=== PATIENT | female | born 1955 | race Caucasian/White ===

== ENCOUNTER → 2022-09-11 | Outpatient (CLI) | payer MEDICARE, SELFPAY ==
--- NOTE | 2022-09-11 13:11 | ECHOD_ITS ---
Reason For Study: EMBOLISM AND THROMBOSIS Procedure This was a 2D Doppler, Color Flow transthoracic echocardiogram. Myocardial strain analysis was performed in this exam to aid in the assessment of cardiac function. Exam performed in department. Left Ventricle Normal size and thickness. The left ventricular ejection fraction is 60 %. Normal diastology for age. Right Ventricle Normal right ventricle. Atria The left and right atria are normal. Mitral Valve Mild mitral annular calcification. Mild diffuse mitral valve thickening. Trivial mitral valve insufficiency. Tricuspid Valve Trivial tricuspid valve insufficiency. Unable to estimate RV systolic pressure due to insufficient tricuspid regurgitant envelope. Aortic Valve Normal aortic valve. Pulmonic Valve The pulmonic valve is not well visualized. Great Vessels Normal sized aortic root. Pericardium/Pleural No pericardial effusion. MMode/2D Measurements & Calculations LVIDd: 4.7 cm IVSd: 0.89 cm Ao root diam: 3.2 cm LVIDs: 3.0 cm LVPWd: 1.2 cm FS: 36.4 % LAV(MOD-bp): 61.9 ml LVAd ap4: 25.6 cm2 SV(MOD-sp4): 43.1 ml LAV(MOD-bp) Indexed: 31.4 ml/m2 LVLd ap4: 7.2 cm LAV(MOD-sp2): 51.1 ml EDV(MOD-sp4): 75.7 ml LAV(MOD-sp4): 71.7 ml EDV(sp4-el): 77.5 ml LVAs ap4: 15.0 cm2 LVLs ap4: 6.0 cm ESV(MOD-sp4): 32.6 ml ESV(sp4-el): 31.9 ml EF(MOD-sp4): 56.9 % EF(sp4-el): 58.8 % SV(sp4-el): 45.6 ml LA A4 area: 22.3 cm2 LA dimension(2D): 3.9 cm RA A4 area: 9.0 cm2 Time Measurements MV dec time: 0.17 sec Doppler Measurements & Calculations MV E max jacobo: 97.3 cm/sec Lat Peak E' Jacobo: 14.3 cm/sec Med Peak E' Jacobo: 10.5 cm/sec MV A max jacobo: 92.7 cm/sec E/E' lat: 6.8 E/E' med: 9.3 MV E/A: 1.1 MV V2 max: 105.1 cm/sec Ao V2 max: 172.4 cm/sec MV max P.4 mmHg MV dec slope: 584.2 cm/sec2 Ao max P.9 mmHg MV V2 mean: 74.5 cm/sec Ao V2 mean: 117.5 cm/sec MV mean P.4 mmHg Ao mean P.3 mmHg MV V2 VTI: 32.2 cm Ao V2 VTI: 35.3 cm AV (velocity ratio): 0.81 LV V1 max: 128.7 cm/sec PA V2 max: 119.7 cm/sec LV V1 max P.6 mmHg PA V2 mean: 78.2 cm/sec LV V1 mean P.9 mmHg LV V1 mean: 93.1 cm/sec LV V1 VTI: 28.4 cm ECHO/Echo Complete Interpretation Summary The left ventricular ejection fraction is 60 %. Mild mitral annular calcification. Mild diffuse mitral valve thickening. Ordering Physician: XENA MCCLAIN Referring Physician: XENA MCCLAIN Performed By: Carisa Edouard RCS
== END | disposition home or self-care (01) ==
PROVIDERS: PCP Family Medicine
DX: I74.4 Embolism and thrombosis of arteries of extremities, unspecified (principal)
CPT/HCPCS: 93306

== ENCOUNTER → 2022-09-20 | Outpatient (CLI) | payer MEDICARE, SELFPAY ==
[2022-09-20 13:10] LABS: ALB/GLOB Ratio 0.7 RATIO (0.9-2.4); AST(SGOT) 322 U/L (15-37); Alanine Aminotransfer ALT/SGPT 825 U/L (13-56); Albumin, Serum 2.8 g/dL (3.2-5.0); Alkaline Phosphatase 537 U/L (45-117); Anion Gap 6 (5-15); BUN 16 mg/dL (7-18); BUN/Creat Ratio 18.8 RATIO (10-20); Bilirubin, Direct 2.53 mg/dL (0.00-0.30); Calcium,Total 8.8 mg/dL (8.5-10.1); Chloride 102 mmol/L (98-107); Creatinine, Serum 0.85 mg/dL (0.55-1.02); EST Glomerular Filtration Rate 71 mL/min (>60); Est Glom Filt Rate - Afr Amer 86 mL/min (>60); Globulin 3.9 g/dL (2.2-4.2); Glucose 256 mg/dL (74-106); Potassium 4.3 mmol/L (3.5-5.1); Protein, Total 6.7 g/dL (6.4-8.2); Sodium Level 134 mmol/L (136-145)
== END | disposition home or self-care (01) ==
LOC: LAB 11:19
PROVIDERS: PCP Family Medicine; Referring Provider Internal Medicine Hematology & Oncology; Visit Provider Internal Medicine Hematology & Oncology
DX: Z51.11 Encounter for antineoplastic chemotherapy (principal); C50.412 Malignant neoplasm of upper-outer quadrant of left female breast; Z51.12 Encounter for antineoplastic immunotherapy
CPT/HCPCS: 36415; 80053; 82248

== ENCOUNTER → 2022-09-28 | Outpatient (CLI) | payer MEDICARE, SELFPAY ==
[2022-09-28 13:31] LABS: ALB/GLOB Ratio 0.8 RATIO (0.9-2.4); AST(SGOT) 134 U/L (15-37); Alanine Aminotransfer ALT/SGPT 365 U/L (13-56); Alkaline Phosphatase 907 U/L (45-117); Anion Gap 4 (5-15); BUN 31 mg/dL (7-18); BUN/Creat Ratio 35.1 RATIO (10-20); Bilirubin, Direct 2.34 mg/dL (0.00-0.30); Calcium,Total 8.9 mg/dL (8.5-10.1); Chloride 99 mmol/L (98-107); Creatinine, Serum 0.88 mg/dL (0.55-1.02); EST Glomerular Filtration Rate 68 mL/min (>60); Est Glom Filt Rate - Afr Amer 82 mL/min (>60); Globulin 3.8 g/dL (2.2-4.2); Glucose 371 mg/dL (74-106); Protein, Total 6.8 g/dL (6.4-8.2); Sodium Level 133 mmol/L (136-145)
== END | disposition home or self-care (01) ==
LOC: LAB 12:01
PROVIDERS: PCP Family Medicine
DX: Z51.11 Encounter for antineoplastic chemotherapy (principal); Z51.12 Encounter for antineoplastic immunotherapy
CPT/HCPCS: 36415; 80053; 82248

== ENCOUNTER → 2022-11-05 | Outpatient (CLI) | payer MEDICARE, SELFPAY ==
[2022-11-05 13:23] LABS: Hematocrit 32.1 % (37-47); Hemoglobin 10.2 g/dL (12.0-15.0); Mean Corp Hgb Conc 31.8 g/dL (32-36); Mean Corpuscular Hgb 33.1 pg (27.0-32.0); Mean Corpuscular Volume 104.2 fL (81-99); Mean Platelet Vol. 10.1 fl (6.2-12.0); Platelet Count 158 K/mm3 (150-450); RBC Distribution Width CV 14.7 % (11.6-14.6); RBC Distribution Width SD 55.9 fl (35.1-43.9); Red Blood Count 3.08 M/mm3 (4.2-5.4); White Blood Count 2.8 K/mm3 (4.4-11.0)
[2022-11-05 14:13] LABS: ALB/GLOB Ratio 0.8 RATIO (0.9-2.4); AST(SGOT) 751 U/L (15-37); Alanine Aminotransfer ALT/SGPT 879 U/L (13-56); Albumin, Serum 2.8 g/dL (3.2-5.0); Alkaline Phosphatase 1055 U/L (45-117); Anion Gap 6 (5-15); BUN 11 mg/dL (7-18); BUN/Creat Ratio 14.3 RATIO (10-20); Calcium,Total 8.6 mg/dL (8.5-10.1); Chloride 99 mmol/L (98-107); Creatinine, Serum 0.77 mg/dL (0.55-1.02); EST Glomerular Filtration Rate 80 mL/min (>60); Est Glom Filt Rate - Afr Amer 97 mL/min (>60); Globulin 3.6 g/dL (2.2-4.2); Glucose 300 mg/dL (74-106); Potassium 4.4 mmol/L (3.5-5.1); Protein, Total 6.4 g/dL (6.4-8.2); Sodium Level 135 mmol/L (136-145)
== END | disposition home or self-care (01) ==
PROVIDERS: PCP Family Medicine; Referring Provider Internal Medicine Hematology & Oncology; Visit Provider Internal Medicine Hematology & Oncology
DX: Z51.11 Encounter for antineoplastic chemotherapy (principal); C50.412 Malignant neoplasm of upper-outer quadrant of left female breast; K75.4 Autoimmune hepatitis; Z51.12 Encounter for antineoplastic immunotherapy; R68.2 Dry mouth, unspecified
CPT/HCPCS: 36415; 80053; 85027

== ENCOUNTER → 2022-12-06 | Outpatient (CLI) | payer MEDICARE, SELFPAY ==
[2022-12-06 13:07] LABS: Hematocrit 36.7 % (37-47); Hemoglobin 11.8 g/dL (12.0-15.0); Mean Corp Hgb Conc 32.2 g/dL (32-36); Mean Corpuscular Hgb 33.9 pg (27.0-32.0); Mean Corpuscular Volume 105.5 fL (81-99); Mean Platelet Vol. 11.7 fl (6.2-12.0); Platelet Count 136 K/mm3 (150-450); RBC Distribution Width CV 15.8 % (11.6-14.6); RBC Distribution Width SD 60.7 fl (35.1-43.9); Red Blood Count 3.48 M/mm3 (4.2-5.4); White Blood Count 8.2 K/mm3 (4.4-11.0)
[2022-12-06 13:34] LABS: AST(SGOT) 29 U/L (15-37); Alanine Aminotransfer ALT/SGPT 99 U/L (13-56); Albumin, Serum 2.9 g/dL (3.2-5.0); Alkaline Phosphatase 289 U/L (45-117); Anion Gap 8 (5-15); BUN 19 mg/dL (7-18); Calcium,Total 8.2 mg/dL (8.5-10.1); Chloride 106 mmol/L (98-107); Creatinine, Serum 0.79 mg/dL (0.55-1.02); EST Glomerular Filtration Rate 77 mL/min (>60); Est Glom Filt Rate - Afr Amer 93 mL/min (>60); Globulin 2.8 g/dL (2.2-4.2); Glucose 361 mg/dL (74-106); Potassium 3.5 mmol/L (3.5-5.1); Protein, Total 5.7 g/dL (6.4-8.2); Sodium Level 140 mmol/L (136-145)
[2022-12-07 10:47] LABS: Absolute Lymphocyte Count 1.41 X10^3/uL (0.83-4.51); Absolute Neutrophil Count 6.2 X10^3/uL (2.0-7.7); Basophil# 0.05 X10^3/uL; Basophil% 0.6 % (0-1); Lymphocyte # 1.41 X10^3/ul (0.83-4.51); Lymphocyte % 16.5 % (19-41); Monocyte# 0.57 X10^3/uL; Monocyte% 6.7 % (0-10); NRBC Flagged by Analyzer 0 % (0-5); Neutrophil # 6.19 X10^3/uL (2.7-7.7); Neutrophil % 72.5 % (47-70)
== END | disposition home or self-care (01) ==
LOC: LAB 11:09
PROVIDERS: PCP Family Medicine; Referring Provider Internal Medicine Hematology & Oncology; Visit Provider Internal Medicine Hematology & Oncology
DX: C50.412 Malignant neoplasm of upper-outer quadrant of left female breast (principal); K75.4 Autoimmune hepatitis; E86.0 Dehydration; R19.7 Diarrhea, unspecified
CPT/HCPCS: 36415; 80053; 85025; 85027

== ENCOUNTER 2022-12-18 17:14 | Emergency (ER) | payer MEDICARE, SELFPAY ==
[2022-12-18 17:15] VITALS: BP 158/68; PULSE 89; RESP 16; TEMP 36.4; O2SAT 99; BMI 36.4
--- NOTE | 2022-12-18 17:53 | CT_ITS ---
STUDY: CT CERVICAL SPINE WITHOUT CONTRAST REASON FOR EXAM: Female, 67 years old. Trauma RADIATION DOSAGE (If Supplied By Facility): CTDIvol = ( 20.96 ) mGy, DLP = ( 422.57 ) mGycm TECHNIQUE: High resolution transaxial imaging was performed without contrast material. Sagittal and coronal images were reconstructed. Individualized dose optimization techniques were used for this CT. COMPARISON: None FINDINGS: Normal craniovertebral junction. There are degenerative changes of the anterior atlantoaxial articulation. Normal odontoid process. There is straightening of the normal cervical lordosis. Normal vertebral bodies and posterior osseous elements. C2-3: There is facet or nephropathy. There is minimal left neural foraminal narrowing no significant central stenosis. C3-4: There is minimal disc space narrowing. There is facet arthropathy with mild left neural foramina narrowing is significant central stenosis. C4-5: There is disc space narrowing left lateral disc osteophyte moderate left neural foramina narrowing minimal central stenosis. C5-6: There is disc space narrowing spondylosis no significant neural foramina narrowing or central stenosis. C6-7: There is visualized minimal disc space narrowing. There are spondylosis without neural foramina narrowing or central stenosis. C7-T1: Normal endplates. Normal disc height and morphology. Normal central canal and intervertebral neuroforamina. There is partially visualized right-sided central line. CT/Spine Cervical without Contras IMPRESSION: Degenerative change of the cervical spine. No visualized acute fracture. Electronically Signed: Faiza Ashley MD at 18:48 EDT ,
--- NOTE | 2022-12-18 17:53 | CT_ITS ---
STUDY: CT BRAIN WITHOUT CONTRAST REASON FOR EXAM: Female, 67 years old. Trauma/fall RADIATION DOSAGE (If Supplied By Facility): CTDIvol = ( 44.99 ) mGy, DLP = ( 779.24 ) mGycm TECHNIQUE: Transaxial CT imaging of the brain was performed without administration of intravenous contrast material. Individualized dose optimization techniques were used for this CT. COMPARISON: No relevant priors. FINDINGS: There is right-sided posterior parietal superficial soft tissue edema measuring up to 4.7 x 1.3 cm. There is no visualized underlying fracture. There is no visualized intracranial hemorrhage. Normal calvarium. Normal size ventricles and extra-axial spaces for the patient''s age. Normal white matter tracts of the cerebral hemispheres. Normal basal ganglia and thalami. Normal brainstem. Normal cerebellum. There is no intracranial hemorrhage. There are no findings of an acute ischemic infarction. Normal visualized paranasal sinuses. There is calcification of the cavernous carotid arteries. CT/Brain/Head without Contrast IMPRESSION: There is right posterior parietal superficial soft tissue edema. No visualized fracture. No visualized intracranial hemorrhage. Electronically Signed: Faiza Ashley MD at 18:39 EDT Reading Location ID and State: [facility] / [place] Tel , Service support ,
--- NOTE | 2022-12-18 17:54 | ED.VIS.FALL ---
HPI HPI - Fall History of Present Illness Chief Complaint: Fall Informant: patient Narrative Narrative: 67-year-old female has been on chemotherapy for breast cancer that has made her chronically weak, recently was discontinued and she is scheduled for surgery on her breast tomorrow, her knees buckle and give out on her from time to time and this happened today as she was walking toward the house after getting out of the car, this caused her to fall onto her buttocks and then fell back and hit her head on the pavement. There is no loss of consciousness. She has a mild headache and pain in her neck, but no other injuries. She states she landed on her knees but they are not hurting. She also landed on her right hip, it is not hurting. Her buttocks are not hurting. She was able to stand and bear weight on both of her lower extremities after the injury. She is on no anticoagulants or antiplatelets. No prodromal symptoms. [facility] PFS Medical History Breast cancer Diabetes Home Medications allopurinol 100 mg tablet 100 mg PO DAILYCM 03/17/17 [History Last Taken Unknown] ketorolac 10 mg tablet 10 mg PO PRN PRN Pain 03/17/17 [History Last Taken Unknown] Allergy/AdvReac Type Severity Reaction Status Date / Time hydrocodone AdvReac Nausea/Vom/ Verified 03/17/17 12:06 Diarrhea Social History household members: spouse housing: house Smoking Status: Never smoker ROS ROS ED Constitutional Constitutional ED: Denies chills or fever(s) Eyes Eyes: Denies change in vision or diplopia ENT ENT ED: Denies rhinorrhea or sore throat Cardiovascular Cardiovascular: Denies chest pain or palpitations Respiratory/Chest Respiratory/Chest: Denies cough or dyspnea Gastrointestinal Gastrointestinal: Denies abdominal pain, diarrhea, nausea or vomiting Genitourinary Genitourinary ED: Denies dysuria or hematuria Musculoskeletal Musculoskeletal: Reports neck pain; Denies back pain Integumentary Denies abscess or rash Neurologic Neurologic: Reports headache(s); Denies paresthesias or weakness Psychiatric Psychiatric: Denies anxiety or suicidal thoughts EXAM Physical Exam Const Vital Signs: 12/18/22 17:15 12/18/22 17:29 Temperature 97.6 F L Temperature Source Temporal Pulse Rate 89 Respiratory Rate 16 Respiratory Effort Normal Respiratory Depth Normal Blood Pressure 158/68 H Blood Pressure Mean 98 Pulse Ox 99 Oxygen Delivery Method Room Air Room Air Positive well nourished and well developed General Appearance ED: well developed and NAD HEENT Reports moist mucous membranes HEENT Narrative: Tender hematoma right high parietal scalp, no laceration or bleeding, no crepitance or depression. No other signs of trauma HEENT. Eyes PERRL and EOMs intact bilaterally Neck full ROM and supple Neck Narrative: Mild diffuse tenderness no step-off or obvious signs of trauma. General: tenderness Resp normal respiratory effort and clear to auscultation bilaterally Cardio regular rate, regular rhythm and no murmurs GI non-tender and non-distended Auscultation: normoactive bowel sounds Palpation: soft Back/Spine no CVA tenderness General Back: other FROM Extremity normal to inspection Extremity Narrative: Full range of motion all joints all 4 extremities without significant pain anywhere. All knee ligaments stable with short endpoints bilaterally. Minor contusion both anterior kneecaps without bony tenderness. General Extremety ED: Negative for edema, pulses abnormal or tenderness General Extremity: Negative for edema or pulses abnormal Neuro oriented x3, CN's II-XII intact bilaterally and no sensory deficits noted Octaviano Coma Scale: document GCS findings Spontaneous Obeys Commands Oriented 15 Sensorium / Orientation: awake and alert Motor Exam: strength 5/5 throughout Psych mental status grossly normal and thought process normal Skin no rashes or lesions noted and no wounds MDM MDM MDM Narrative Medical decision making narrative: CT of the head and cervical spine were obtained in order to rule out intracranial injury and fracture, I reviewed the images and report which I agree with, negative for anything acute. Patient reassured, offered Tylenol and ice pack and will be discharged home instructions for supportive care. She is in agreement that she does not require x-rays of any other mildly injured parts. Radiography Diagnostic Testing: Clinical Impression(s) from Imaging Studies Brain CT 12/18/22 17:53 IMPRESSION: There is right posterior parietal superficial soft tissue edema. No visualized fracture. No visualized intracranial hemorrhage. Electronically Signed: Faiza Ashley MD at 18:39 EDT Reading Location ID and State: [facility] / [place] Tel , Service support , Cervical Spine CT 12/18/22 17:53 IMPRESSION: Degenerative change of the cervical spine. No visualized acute fracture. Electronically Signed: Faiza Ashley MD at 18:48 EDT , Discharge Plan Triage Chief Complaint: Fall ED Provider: Dustin Benavides Dx/Rx/DC Orders Clinical Impression: Acute cervical myofascial strain, Hematoma of right parietal scalp, Closed head injury without loss of consciousness Instructions: ED Head Injury (Adult) Prescriptions: No Action allopurinol 100 MG tablet 100 mg PO DAILYCM ketorolac 10 MG tablet 10 mg PO PRN PRN (Reason: Pain) Primary Care Provider: Ketan Alvarado Referrals: Ketan Alvarado DO [Primary Care Provider] - As Needed Disposition Disposition: Home, Self Care
== END 2022-12-18 19:54 | disposition home or self-care (01) ==
PROVIDERS: Emergency Provider Emergency Medicine; PCP Family Medicine; Visit Provider Emergency Medicine
DX: S00.03XA Contusion of scalp, initial encounter (principal); C50.919 Malignant neoplasm of unspecified site of unspecified female breast; E11.9 Type 2 diabetes mellitus without complications; S16.1XXA Strain of muscle, fascia and tendon at neck level, initial encounter; W19.XXXA Unspecified fall, initial encounter; Z79.899 Other long term (current) drug therapy
CPT/HCPCS: 70450; 72125; 99283

== ENCOUNTER 2022-12-27 20:38 | Emergency (ER) | payer MEDICARE, SELFPAY ==
[2022-12-27 20:41] VITALS: BP 103/56; PULSE 108; RESP 21; TEMP 36.9; O2SAT 92
--- NOTE | 2022-12-27 21:52 | EX.ED.DYSGE1 ---
HPI History of Present Illness Chief Complaint: Wound Check Informant: patient and spouse/S.O. Onset/Context/Timing Onset: Yesterday Context: Gradual Onset Timing: Continuous Quality: Burning Location: Left breast area Worsened by: Certain movements Relieved by: Nothing Narrative Narrative: Patient presents with pain and swelling to the left breast area that began yesterday. Patient had a recent mastectomy. Patient has a Daniel-Andino drain in the left breast area. Patient states there was a clot in the drain tube. Family states that they were able to remove the clot. Patient had moderate amount of drainage in the drain tube after removing the clot. Patient admits to some fullness and pain over the left breast area. Patient describes it as burning. Patient denies any fevers or chills. Patient denies any discharge or drainage. [facility] Medical History (Updated 12/27/22 @ 23:[address] Bao Vivar DO) Breast cancer Diabetes Home Medications glimepiride 4 mg tablet 4 mg PO DAILY 12/27/22 [History Last Taken Unknown] Allergy/AdvReac Type Severity Reaction Status Date / Time hydrocodone AdvReac Nausea/Vom/ Verified 12/27/22 20:40 Diarrhea Surgical History (Updated 12/27/22 @ 21:[address] Bao Vivar DO) Hx of section Hx of left mastectomy Social History household members: spouse housing: house Smoking Status: Never smoker ROS ROS ED Constitutional Constitutional ED: Denies chills or fever(s) Eyes Eyes: Denies blurry vision or change in vision ENT ENT ED: Denies rhinorrhea or sore throat Cardiovascular Cardiovascular: Reports chest pain; Denies palpitations Respiratory/Chest Respiratory/Chest: Denies cough or dyspnea Gastrointestinal Gastrointestinal: Denies nausea or vomiting Genitourinary Genitourinary ED: Denies dysuria or hematuria Musculoskeletal Musculoskeletal: Denies back pain or neck pain Integumentary Denies abscess or rash Neurologic Neurologic: Denies headache(s) or weakness Allergic/Immunologic Allergic/Immunologic ED: Denies mouth swelling or urticaria EXAM Physical Exam Const Vital Signs: 12/27/22 20:41 Temperature 98.5 F Temperature Source Oral Pulse Rate 108 H Respiratory Rate 21 H Blood Pressure 103/56 L Blood Pressure Mean 71 Pulse Ox 92 Oxygen Delivery Method Room Air Positive well nourished and well developed General Appearance ED: well developed and NAD HEENT Reports dry mucous membranes Mouth ED: Yes dry mucous membranes Mouth: dry mucous membranes Neck supple and no JVD Chest Wall Chest Narrative: There is tenderness over the left chest wall. There is some ecchymosis noted. There is no erythema. The mastectomy incision is healing well. There is no erythema or warmth noted. There is no discharge or drainage. There is no fluctuance noted. There is some serosanguineous drainage noted in the Daniel-Andino drain. There is no purulent drainage noted. Resp normal respiratory effort and clear to auscultation bilaterally Cardio regular rate and regular rhythm GI non-tender and non-distended Palpation: soft Neuro oriented x3, CN's II-XII intact bilaterally and no sensory deficits noted Sensorium / Orientation: alert Motor Exam: strength 5/5 throughout Psych mental status grossly normal Skin no rashes or lesions noted MDM MDM MDM Narrative Medical decision making narrative: Differential diagnosis includes postoperative hematoma, seroma, postoperative pain, and postoperative infection. CBC will be obtained to assess for leukocytosis and anemia. Comprehensive metabolic profile will be obtained to assess for hepatic function, renal function, and electrolyte abnormality. PT with INR and PTT will be obtained to assess for coagulopathy. Lab Data Attestation: I reviewed the patient's lab results. Lab results narrative: CBC was reviewed. There is a stable anemia with a hemoglobin of 10.2 and hematocrit 31.2. Platelets were slightly low at 84. PT with INR and PTT were reviewed. Pro time was 15.8, INR is 1.3, and PTT was 35.1. Comprehensive metabolic profile was reviewed. Sodium was slightly low at 133 and potassium was 3.2. Glucose was elevated at 381. Total bilirubin was slightly elevated at 1.3. AST and ALT were within normal limits. Alkaline phosphatase was normal. The remainder is within normal limits. Labs: Laboratory Results - last 24 hr 12/27/22 22:00 WBC 9.0 RBC 3.04 L Hgb 10.2 L Hct 31.2 L MCV 102.6 H MCH 33.6 H MCHC 32.7 RDW Std Deviation 55.5 H RDW Coeff of Ranjana 14.6 Plt Count 84 L MPV 11.0 Immature Gran % (Auto) 1.600 H Neut % (Auto) 76.6 H Lymph % (Auto) 15.5 L Nash % (Auto) 6.0 Eos % (Auto) 0.0 Baso % (Auto) 0.3 Absolute Neuts (auto) 6.9 Absolute Lymphs (auto) 1.40 Nucleated RBC % 0 Differential Comment SCANNED PT 15.8 H INR 1.3 APTT 35.1 Sodium 133 L Potassium 3.2 L Chloride 99 Carbon Dioxide 27.0 Anion Gap 7 BUN 13 Creatinine 0.78 Est GFR (MDRD) Af Amer 95 Est GFR (MDRD) Non-Af 78 BUN/Creatinine Ratio 16.7 Glucose 381 H Calcium 7.3 L Total Bilirubin 1.30 H AST 21 ALT 36 Alkaline Phosphatase 109 Total Protein 4.1 L Albumin 1.8 L Globulin 2.3 Albumin/Globulin Ratio 0.8 L Treatment and Re-Evaluation :: Patient was given IV fluids, morphine, and Zofran. Patient is feeling better on reevaluation. Patient was advised of her findings. Patient was instructed to follow-up with her surgeon as scheduled. Patient and family understood and were agreeable with the plan. All questions were answered. Discharge Plan Triage Chief Complaint: Wound Check ED Provider: Bao Vivar Dx/Rx/DC Orders Clinical Impression: History of cancer of left breast, Postoperative hematoma Instructions: ED Post Op Wound Check, Bleeding Prescriptions: No Action glimepiride 4 mg tablet 4 mg PO DAILY Patient Comments: take 1 tablet by mouth every morning with food Primary Care Provider: Ketan Alvarado Referrals: Ketan Alvarado DO [Primary Care Provider] - 3-5 Days Disposition Disposition: Home, Self Care
[2022-12-27] MEDS: Ondansetron 4 MG/2 ML Vial IV (21:59)
[2022-12-27] MEDS: 0.9% Normal Saline (1000mL) 1,000 ML 1000 ML IV (21:59)
[2022-12-27] MEDS: Morphine 4 MG/ML Syringe IV (21:59)
[2022-12-27 22:10] LABS: Absolute Neutrophil Count 6.9 X10^3/uL (2.0-7.7); Basophil# 0.03 X10^3/uL; Basophil% 0.3 % (0-1); Hematocrit 31.2 % (37-47); Hemoglobin 10.2 g/dL (12.0-15.0); Lymphocyte % 15.5 % (19-41); Mean Corp Hgb Conc 32.7 g/dL (32-36); Mean Corpuscular Hgb 33.6 pg (27.0-32.0); Mean Corpuscular Volume 102.6 fL (81-99); Monocyte# 0.54 X10^3/uL; NRBC Flagged by Analyzer 0 % (0-5); Neutrophil # 6.92 X10^3/uL (2.7-7.7); Neutrophil % 76.6 % (47-70); POSITIVE COUNT YES; POSITIVE MORPHOLOGY YES; Platelet Count 84 K/mm3 (150-450); RBC Distribution Width CV 14.6 % (11.6-14.6); RBC Distribution Width SD 55.5 fl (35.1-43.9); Red Blood Count 3.04 M/mm3 (4.2-5.4)
[2022-12-27 22:26] LABS: Differential Indicated SCAN CRITERIA MET
[2022-12-27 22:27] LABS: International Normalized Ratio 1.3; Partial Thromboplast Time 35.1 Seconds (24.1-36.2); Prothrombin Time (Protime)PT. 15.8 SECONDS (11.7-14.9)
[2022-12-27 22:33] LABS: ALB/GLOB Ratio 0.8 RATIO (0.9-2.4); AST(SGOT) 21 U/L (15-37); Alanine Aminotransfer ALT/SGPT 36 U/L (13-56); Albumin, Serum 1.8 g/dL (3.2-5.0); Alkaline Phosphatase 109 U/L (45-117); Anion Gap 7 (5-15); BUN 13 mg/dL (7-18); BUN/Creat Ratio 16.7 RATIO (10-20); Calcium,Total 7.3 mg/dL (8.5-10.1); Chloride 99 mmol/L (98-107); Creatinine, Serum 0.78 mg/dL (0.55-1.02); EST Glomerular Filtration Rate 78 mL/min (>60); Est Glom Filt Rate - Afr Amer 95 mL/min (>60); Globulin 2.3 g/dL (2.2-4.2); Glucose 381 mg/dL (74-106); Potassium 3.2 mmol/L (3.5-5.1); Protein, Total 4.1 g/dL (6.4-8.2); Sodium Level 133 mmol/L (136-145)
[2022-12-27 22:40] VITALS: RESP 20
[2022-12-27 22:56] LABS: Differential Comment SCANNED
== END 2022-12-27 23:53 | disposition home or self-care (01) ==
PROVIDERS: Emergency Provider Emergency Medicine; PCP Family Medicine; Visit Provider Emergency Medicine
DX: L76.31 Postprocedural hematoma of skin and subcutaneous tissue following a dermatologic procedure (principal); E11.9 Type 2 diabetes mellitus without complications; N64.4 Mastodynia; Z85.3 Personal history of malignant neoplasm of breast; Y84.9 Medical procedure, unspecified as the cause of abnormal reaction of the patient, or of later complication, without mention of misadventure at the time of the procedure
CPT/HCPCS: 36591; 80053; 85025; 85610; 85730; 96361; 96374; 96375; 99284; J7030; A4216; J2405

== ENCOUNTER → 2023-01-25 | Outpatient (CLI) | payer MEDICARE, SELFPAY ==
[2023-01-25 12:14] LABS: Hematocrit 32.5 % (37-47); Hemoglobin 10.1 g/dL (12.0-15.0); Mean Corp Hgb Conc 31.1 g/dL (32-36); Mean Corpuscular Hgb 32.4 pg (27.0-32.0); Mean Corpuscular Volume 104.2 fL (81-99); Mean Platelet Vol. 9.4 fl (6.2-12.0); Platelet Count 284 K/mm3 (150-450); RBC Distribution Width CV 14.5 % (11.6-14.6); RBC Distribution Width SD 55.1 fl (35.1-43.9); Red Blood Count 3.12 M/mm3 (4.2-5.4); White Blood Count 8.4 K/mm3 (4.4-11.0)
[2023-01-25 12:49] LABS: ALB/GLOB Ratio 0.5 RATIO (0.9-2.4); AST(SGOT) 18 U/L (15-37); Alanine Aminotransfer ALT/SGPT 16 U/L (13-56); Albumin, Serum 1.8 g/dL (3.2-5.0); Alkaline Phosphatase 202 U/L (45-117); Anion Gap 3 (5-15); BUN 10 mg/dL (7-18); BUN/Creat Ratio 18.6 RATIO (10-20); Calcium,Total 7.8 mg/dL (8.5-10.1); Chloride 111 mmol/L (98-107); Creatinine, Serum 0.54 mg/dL (0.55-1.02); EST Glomerular Filtration Rate 121 mL/min (>60); Est Glom Filt Rate - Afr Amer 146 mL/min (>60); Globulin 3.7 g/dL (2.2-4.2); Glucose 153 mg/dL (74-106); Protein, Total 5.5 g/dL (6.4-8.2); Sodium Level 143 mmol/L (136-145)
== END | disposition home or self-care (01) ==
LOC: LAB 11:15
PROVIDERS: PCP Family Medicine; Referring Provider Internal Medicine Hematology & Oncology; Visit Provider Internal Medicine Hematology & Oncology
DX: Z51.11 Encounter for antineoplastic chemotherapy (principal); C50.412 Malignant neoplasm of upper-outer quadrant of left female breast; K75.4 Autoimmune hepatitis; Z51.12 Encounter for antineoplastic immunotherapy; E86.0 Dehydration; R19.7 Diarrhea, unspecified
CPT/HCPCS: 36415; 80053; 85027

== ENCOUNTER → 2023-10-22 | Outpatient (CLI) | payer MEDICARE, SELFPAY ==
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
[2023-10-22 13:26] LABS: CREATININE FINGERSTICK < 1.0 mg/dL (0.55-1.02); EGFR FINGERSTICK > 60.0000 mL/min (>60)
== END | disposition home or self-care (01) ==
LOC: MRI 12:36
PROVIDERS: PCP Family Medicine; Referring Provider Family Medicine; Visit Provider Family Medicine
DX: Z85.3 Personal history of malignant neoplasm of breast (principal)
CPT/HCPCS: 73220; A9575

== ENCOUNTER 2023-11-28 13:30 | Outpatient (RCR) | payer MEDICARE, SELFPAY ==
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
--- NOTE | 2023-06-11 16:14 | HP.PTREVAL_ITS ---
Re-Evaluation Intro: Dr. Zina Rojas MD, It has been my pleasure to treat STEVIE PISANO over the last 9 visits for Stiffness of L shoulder. Please see the progress note below for an update on the physical therapy plan of care! Subjective Subjective: Pt feels pretty good today, has some discomfort in neck following exercises. Pt went to chiropractor earlier today, they addressed some L sided ribs/scapular mobility. Pt was playing with her grandkids over the weekend, lifting caused delayed pain and pulling in shoulder. Pt feels everything is still about the same but feels raising her arm is a little better. Pt feels pain is still major limiting Objective Objective/Function: AROM: flex 80 deg, ABD 60 deg, IR to L5, ER most painful when attempting to reach behind head PROM: flex 140 with good stretch to shoulder PALPATION: improved scar mobility, some ant shoulder pain near origin of LHB, white and pink scar (normal coloring expected at this stage of healing) MMT: at 20 deg ABD pt able to achieve 3+/5 with pain (palm up and thumb down) Pt still having difficulty with lifting arm, some soft tissue restriction d/t scar, seems to be more strength related now that ROM has improved. Educated pt t o increase stretching and do AAROM with cane to push end range and stretch at home so we can improve strength in clinic. Plan Plan Plan: Would like sessions to start with stretching into end range ROM, then do strengthening -PROM/AAROM and scar mobilization of L shoulder/axilla, can include AP and inf GH mobs >can increase aggressiveness, pulleys, AAROM, wall walks, wall washes....do at beginning of session -Pec, bicep, and lat stretching -begin strengthening within tolerated range (banded scapular, no weight for shoulder strengthening) >isometrics, S/L ER, wall washes, chest press, S/L ABD, bicep curls, rows, pull downs, shoulder shrugs, bent over rows Obtain Quick DASH if able at some point (HEP: wall washes, lat stretch standing, AAROM ABD and flex, supine pec stretch) Balance/Gait/Functional tests Balance/Special Test Scores Lower Extremity Functional Score: 32 Goals Goals Goal 1:: STG: Pt will demonstrate increased scar mobility, with very little tightness with PROM Goal Time Frame: 4-6 Weeks Goal Progress: Progressing Goal 2:: STG: Pt will achieve full PROM with <2/10 pain Goal Time Frame: 4-6 Weeks Goal Progress: Progressing Goal 3:: LTG: Pt will achieve full AROM in L shoulder with <2/10 pain Goal Time Frame: 4-6 Weeks Goal Progress: Progressing Goal 4:: LTG: Pt will be able to lift 8# with LUE and <2/10 pain Goal Time Frame: 4-6 Weeks Goal Progress: Progressing Goal 5:: LTG: Pt will be able to pull herself up into the car with <2/10 pain Goal Time Frame: 4-6 Weeks Goal Progress: Progressing Anticipated Interventions Anticipated Interventions Patient/Client Instruction: Educate patient on: Condition and Plan of Care For the Purpose of:: To decrease pain, To decrease swelling/inflammation, To increase ROM, To improve muscle performance and motor function, To improve ability to perform ADL's, To increase tolerance to activity/condition/position, To improve performance and independence with ADL's, To decrease level of supervision to perform tasks, To improve ability of physical actions for home/community/work/leisure, To improve health of tissue, To decrease soft tissue restriction, To increase flexibility/ROM, To assume or resume ADL's, To improve self management, To improve ability to perform tasks related to life management and To improve tolerance to ADL's Therapeutic Exercise to Include: Strength training, Postural training, Flexibilty training, Neuromotor development, Biofeedback, Passive ROM, Active ROM and Scapular Strength/Stabilization For the Purpose of:: To decrease pain, To increase ROM, To improve health of tissue, To decrease soft tissue restriction, To increase flexibility/ROM, To assume or resume ADL's, To improve self management, To improve ability to perform tasks related to life management and To improve tolerance to ADL's Manual Therapy Techniques to Include: Scar massage, Mobilization, Passive ROM and Soft tissue mobilization For the Purpose of:: To decrease pain, To decrease swelling/inflammation, To increase ROM, To improve ability to perform ADL's, To increase tolerance to activity/condition/position, To improve health of tissue, To decrease soft tissue restriction, To increase flexibility/ROM and To improve ability to perform tasks related to life management Cryotherapy (ice pack, ice massage): Yes For the Purpose of:: To decrease pain and To decrease swelling/inflammation Re-Evaluation Ending Re-evaluation ending: Please do not hesitate to contact me at [phone] by phone or if you have questions or concerns regarding this new plan of care! Sincerely, BILLY SantiagoT
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
--- NOTE | 2023-10-03 13:34 | HP.PTREVAL ---
Re-Evaluation Intro: Dr. Zina Rojas MD, It has been my pleasure to treat STEVIE PISANO over the last 32 visits for Stiffness of L shoulder. Please see the progress note below for an update on the physical therapy plan of care! Subjective Subjective: Pt. reports overall doing well, only has pain with raising L UE over head motions. Sleeping well without issues. Pt. has MRI at the end of the month. Objective Objective/Function: AROM: L shoulder- flexion 110deg, abd 90deg, functional ER C2 aberrant motion, functional IR L4 aberrant motion. PROM: L shoulder: flexion 125deg, abd 120deg, ER at 90deg of abd 56deg, IR at 90deg of abd 35. MMT: IR symmetrical bilaterally, ER: R 14.3#, L 9.1#: flexion R 15.2#, L 7.2#; abd R 22.4#, L 13.5#. Pt. continues to have increased pain with ER, flexion and abduction MMT. Pt. is limited with AROM and PROM secondary to pain. She is having an MRI at this end of the month. I would recommend that she continue to work on strengthening and progressive stretching Plan Plan Plan: recommend that she continue to work on strengthening and progressive stretching. Push into end range flexion, abd and ER. Add in progressive deltoid and ER strengthening. Extending POC x2 per wee for 4 weeks. To work on the above POC. Balance/Gait/Functional tests Balance/Special Test Scores Lower Extremity Functional Score: 32 Quick DASH Score: 27.2725 Goals Goals Goal 1:: STG: Pt will demonstrate increased scar mobility, with very little tightness with PROM Goal Time Frame: 4-6 Weeks Goal Progress: Goal Met Goal 2:: STG: Pt will achieve full PROM with <2/10 pain Goal Time Frame: 4-6 Weeks Goal Progress: Progressing Goal 3:: LTG: Pt will achieve full AROM in L shoulder with <2/10 pain Goal Time Frame: 4-6 Weeks Goal Progress: Progressing Goal 4:: LTG: Pt will be able to lift 8# with LUE and <2/10 pain Goal Time Frame: 4-6 Weeks Goal Progress: Progressing Goal 5:: LTG: Pt will be able to pull herself up into the car with <2/10 pain Goal Time Frame: 4-6 Weeks Goal Progress: Goal Met Goal 6:: LTG: Pt. to have symmetrical strength between B UEs. Goal Time Frame: 4-6 Weeks Anticipated Interventions Anticipated Interventions Patient/Client Instruction: Educate patient on: Condition and Plan of Care For the Purpose of:: To decrease pain, To decrease swelling/inflammation, To increase ROM, To improve muscle performance and motor function, To improve ability to perform ADL's, To increase tolerance to activity/condition/position, To improve performance and independence with ADL's, To decrease level of supervision to perform tasks, To improve ability of physical actions for home/community/work/leisure, To improve health of tissue, To decrease soft tissue restriction, To increase flexibility/ROM, To assume or resume ADL's, To improve self management, To improve ability to perform tasks related to life management and To improve tolerance to ADL's Therapeutic Exercise to Include: Strength training, Postural training, Flexibilty training, Neuromotor development, Biofeedback, Passive ROM, Active ROM and Scapular Strength/Stabilization For the Purpose of:: To decrease pain, To increase ROM, To improve health of tissue, To decrease soft tissue restriction, To increase flexibility/ROM, To assume or resume ADL's, To improve self management, To improve ability to perform tasks related to life management and To improve tolerance to ADL's Manual Therapy Techniques to Include: Scar massage, Mobilization, Passive ROM and Soft tissue mobilization For the Purpose of:: To decrease pain, To decrease swelling/inflammation, To increase ROM, To improve ability to perform ADL's, To increase tolerance to activity/condition/position, To improve health of tissue, To decrease soft tissue restriction, To increase flexibility/ROM and To improve ability to perform tasks related to life management Cryotherapy (ice pack, ice massage): Yes For the Purpose of:: To decrease pain and To decrease swelling/inflammation Re-Evaluation Ending Re-evaluation ending: Please do not hesitate to contact me at [phone] by phone or if you have questions or concerns regarding this new plan of care! Sincerely, Roberto Montanez, BILLYT
--- NOTE | 2023-12-31 07:53 | HP.PTREVAL_ITS ---
Re-Evaluation Intro: Dr. Zina Rojas MD, It has been my pleasure to treat STEVIE PISANO over the last 39 visits for Stiffness of L shoulder. Please see the progress note below for an update on the physical therapy plan of care! Subjective Subjective: Pt. reports that she is improving. She did have an MRI showing some RTC tears. She would really like to avoid surgery. She is happy with her progress, but would like to be more functional with her L shoulder mobility. She would like to complete all of her ADLs with less issues. Objective Objective/Function: AROM: L shoulder: flexion 98deg, abd 75deg, functional IR L5, functional ER C2 with aberrant motion. PROM: L shoulder: flexion 135deg, abd 130deg, ER at 90deg 50deg, IR at 90deg 30deg. MMT: L shoulder: ER 5#, IR 17#, ext 21#, abd 5#, flex 4#. R shoulder: ER 16#, IR 19#, ext 24#, abd 15#, flexion 13# Pt. continues to have marked loss in strength and ROM of L shoulder. She has improved but slowly. I would like to continue with strengthening surrounding her RTC in attempt to avoid surgery and regain as much function as she can. Plan Plan Plan: Asking for future visits to increase strength of L shoulder and AROM. Progress phase III strengthening and deltoid strengthening. Add in functional strengthening as well. Balance/Gait/Functional tests Balance/Special Test Scores Lower Extremity Functional Score: 32 Quick DASH Score: 18.1800 Goals Goals Goal 1:: STG: Pt will demonstrate increased scar mobility, with very little tightness with PROM Goal Time Frame: 4-6 Weeks Goal Progress: Goal Met Goal 2:: STG: Pt will achieve full PROM with <2/10 pain Goal Time Frame: 4-6 Weeks Goal Progress: Progressing Goal 3:: LTG: Pt will achieve full AROM in L shoulder with <2/10 pain Goal Time Frame: 4-6 Weeks Goal Progress: Progressing Goal 4:: LTG: Pt will be able to lift 8# with LUE and <2/10 pain Goal Time Frame: 4-6 Weeks Goal Progress: Progressing Goal 5:: LTG: Pt will be able to pull herself up into the car with <2/10 pain Goal Time Frame: 4-6 Weeks Goal Progress: Goal Met Goal 6:: LTG: Pt. to have symmetrical strength between B UEs. Goal Time Frame: 4-6 Weeks Goal Progress: Progressing Anticipated Interventions Anticipated Interventions Patient/Client Instruction: Educate patient on: Condition and Plan of Care For the Purpose of:: To decrease pain, To decrease swelling/inflammation, To increase ROM, To improve muscle performance and motor function, To improve ability to perform ADL's, To increase tolerance to activity/condition/position, To improve performance and independence with ADL's, To decrease level of supervision to perform tasks, To improve ability of physical actions for home/community/work/leisure, To improve health of tissue, To decrease soft tissue restriction, To increase flexibility/ROM, To assume or resume ADL's, To improve self management, To improve ability to perform tasks related to life management and To improve tolerance to ADL's Therapeutic Exercise to Include: Strength training, Postural training, Flexibilty training, Neuromotor development, Biofeedback, Passive ROM, Active ROM and Scapular Strength/Stabilization For the Purpose of:: To decrease pain, To increase ROM, To improve health of t issue, To decrease soft tissue restriction, To increase flexibility/ROM, To assume or resume ADL's, To improve self management, To improve ability to perform tasks related to life management and To improve tolerance to ADL's Manual Therapy Techniques to Include: Scar massage, Mobilization, Passive ROM and Soft tissue mobilization For the Purpose of:: To decrease pain, To decrease swelling/inflammation, To increase ROM, To improve ability to perform ADL's, To increase tolerance to activity/condition/position, To improve health of tissue, To decrease soft tissue restriction, To increase flexibility/ROM and To improve ability to perform tasks related to life management Cryotherapy (ice pack, ice massage): Yes For the Purpose of:: To decrease pain and To decrease swelling/inflammation Re-Evaluation Ending Re-evaluation ending: Please do not hesitate to contact me at [phone] by phone or if you have questions or concerns regarding this new plan of care! Sincerely, BILLY SantiagoT
== END 2023-11-28 19:00 | disposition home or self-care (01) ==
LOC: PT 13:30
PROVIDERS: PCP Family Medicine; Referring Provider Internal Medicine Hematology & Oncology; Visit Provider Internal Medicine Hematology & Oncology
DX: M25.60 Stiffness of unspecified joint, not elsewhere classified (principal)
CPT/HCPCS: 97110; 97140; 97161; 97164; 97530

== ENCOUNTER 2024-05-12 13:00 | Outpatient (RCR) | payer MEDICARE, SELFPAY ==
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
--- NOTE | 2024-09-21 16:06 | HP.OTDCNRP_ITS ---
Patient Information Patient Information: STEVIE PISANO was seen in my office for initial evaluation on 04/28/24. The following Plan of Care was established for this patient: POC Established Initial Frequency: Every Other Week Initial Duration: 6 Weeks Anticipated Interventions Anticipated Interventions: A/AAROM/PROM, Strengthening, Scar Care, Education re assistive Equipment, Education re Diagnosis, Education re Life-long lymphedema Management, Education re Self-Bandaging Techniques, Education re Skin Care and Precautions, Education re Self Massage Techniques, Education re Correct Donning Tech,Care&Wearing Sched Comp Garments, Caregiver Training and Home Program Last Seen Last Seen: This patient was last seen in our office 04/28/24. Pertinent comments regarding their Occupational therapy will appear below: pt was seen for 2 OT sessions. No further apts have been scheduled and due to time lapse in services pt is d/c at this time. At this point I will be discontinuing this patient from occupational therapy. I would be happy to see this patient again in the future if found appropriate by t he physician. Thank you! Bere Dang, OTR/L, CHT
== END 2024-05-12 19:00 | disposition home or self-care (01) ==
LOC: OT 13:00
PROVIDERS: PCP Family Medicine
DX: I89.0 Lymphedema, not elsewhere classified (principal)
CPT/HCPCS: 97166; 97530

== ENCOUNTER → 2024-07-16 | Outpatient (CLI) | payer MEDICARE, SELFPAY ==
--- NOTE | 2024-07-16 12:51 | BD_ITS ---
PROCEDURE: DEXA BONE DENSITY STUDY 07/16/2024 REASON FOR EXAM: F, age 69 y/o . Postmenopausal. TECHNIQUE: DXA scan of sites with data reported below. REFERENCE LINKS: ISCD Adult Positions COMPARISON: None FINDINGS: BMD and T-SCORES Lumbar spine: 1.27 cm g/cm2, T-score 2.1 Levels: L1 through L4 Left femoral neck: 0.786 g/cm2, T-score -0.6 Femoral neck comparison data not recommended for monitoring change. Left total hip: 1.115 g/cm2, T-score 1.4 Right femoral neck: 0.816 g/cm2, T-score -0.3 Femoral neck comparison data not recommended for monitoring change. Right total hip: 1.118 g/cm2, T-score 1.4 The World Health Organization has defined the following categories based on bone density: Normal bone density: T-score equal to or greater than -1.0 Osteopenia: T-score between -1.0 and -2.5 Osteoporosis: T-score equal to or less than -2.5 FRAX (or Comparable) Fracture Risk Assessment: (Note: FRAX is not to be reported in setting of normal range bone density, osteoporosis on DEXA, known history of osteoporosis, prior osteoporotic hip or vertebral fracture, or for any patient undergoing pharmacological treatment for bone loss.) The National Osteoporosis Foundation (NOF) recommends pharmacological treatment for patients with a FRAX 10-year risk of 3% or higher for a hip fracture, or 20% or higher for a major osteoporotic fracture, to prevent osteoporosis and reduce fracture risk. The patient does meet the pharmacological treatment recommendations for prevention of osteoporosis. BD/Dexa Bone Density Study IMPRESSION: NORMAL T-SCORES. Recommend follow-up as clinically warranted. Reading Location: [place] [id number]
== END | disposition home or self-care (01) ==
LOC: OPBD 12:50
PROVIDERS: PCP Family Medicine; Referring Provider Internal Medicine Hematology & Oncology; Visit Provider Internal Medicine Hematology & Oncology
DX: Z51.11 Encounter for antineoplastic chemotherapy (principal); C50.412 Malignant neoplasm of upper-outer quadrant of left female breast; C50.112 Malignant neoplasm of central portion of left female breast; Z51.12 Encounter for antineoplastic immunotherapy; Z78.0 Asymptomatic menopausal state
CPT/HCPCS: 77080

== ENCOUNTER 2024-10-13 10:30 | Outpatient (RCR) | payer MEDICARE, SELFPAY ==
--- NOTE | 2024-06-04 11:03 | HP.PTEVAL_ITS ---
Patient's Visit Information Visit Information Visit Information: STEVIE PISANO is a 69 year old F referred to Physical Therapy by Dr. Elver Clark MD with a diagnosis of R knee OA. Date of Evaluation: 06/04/24 Physical Therapist: Jovany Jones, PT, ATC Visit Plan Frequency: 2x /Week Duration: 4 Weeks Plan: Aquatic therapy consisting of R LE stretching and strengthening and core stab ex's Subjective Subjective: Pt reports her R knee has been sore for months. Pt reports she had been treated by a chiropractor for a couple months, but the pain hasnt been improving. Pt reports she went to the orthopedic doctor earlier this week after receiving xrays which revealed she has OA in both knees. Pt reports her R knee will pop and give out on her at times, sometimes leading to a fall. Pt reports she has fallen a few times in the past. Pt reports she has stairs at home, but she doesnt have to negotiate them on a daily basis. Pt reports when she does have to go down them, she negotiates them sideways, one step at a time. Pt reports she is unable to ambulate a far distance secondary to her R knee pain. Pt denies any tingling or numbness in her B LE's. Pt reports she lives in a one story house. Pt reports she has no pain at rest today, but pain increases to 6/10 at worst in the R knee. No pain in the L knee. Pt reports no sleep difficulty at this time secondary to pain. Pain R knee: Pain Intensity (Out of 10): 0 Pain Intensity Range: 6 L knee: Pain Intensity (Out of 10): 0 Pain Intensity Range: 0 Objective Objective: Neuro: B LE sensation is WNL to light touch. Palpation: Pt is very sore along the medial joint line of the R knee. Crepitus with AROM TU seconds MMT: L knee flex= 28, ext= 37 #F; R knee flex= 21, ext= 14 #F ROM: L knee 0-5-90 ; R knee 0-13-80 Balance/Special Test Scores Lower Extremity Functional Score: 36 Goals Goal 1:: Decrease R knee pain x 50% to aid with ambulation Goal Time Frame: 4-6 Weeks Goal 2:: Increase R knee ROM x 20 degrees to aid with squatting type activity Goal Time Frame: 4-6 Weeks Goal 3:: Increase R knee strength x 10#F to aid with stair negotiation Goal Time Frame: 4-6 Weeks Goal 4:: I with HEP Goal Time Frame: 4-6 Weeks Rehabilitation Potential Physical Therapy Diagnosis: Pt has R knee pain, weakness, and limited ROM secondary to R knee OA Rehabilitation Potential: Good Anticipated Interventions Patient/Client Instruction: Educate patient on: Condition and Plan of Care For the Purpose of:: To improve self management Therapeutic Exercise to Include: Strength training, Endurance training, Balance training, Flexibilty training, In an aquatic setting, Active ROM and Dynamic Lumbar Stabilization For the Purpose of:: To decrease pain, To increase ROM and To improve muscle performance and motor function Text: Thank you for the opportunity to evaluate your patient. For Medicare and Medicare HMO plans, please review the plan of care and approve it. It will need to be FAXED BACK to us at [phone] for Medicare purposes. For Medicare only, by signing this I certify the plan of care. Please let me know if there are questions or concerns regarding this plan of care. Physician Signature: Date:
--- NOTE | 2024-07-07 15:02 | HP.PTREVAL ---
Re-Evaluation Intro: Dr. Elver Clark MD, It has been my pleasure to treat STEVIE PISANO over the last 8 visits for R knee OA. Please see the progress note below for an update on the physical therapy plan of care! Subjective Subjective: This has been really helping me. Objective Objective/Function: R knee pain ranges from 0-4/10 R knee MMT: flex= 29, ext= 40 #F R knee ROM: 0-95 degrees Pt has improved with all aspects of treatment with increased strength, increased ROM, and decreased pain. Pt is still limited with stair negotiation Plan Plan Plan: 07/07/24- Cont with Aquatic therapy consisting of R LE stretching and strengthening and core stab ex's Balance/Gait/Functional tests Balance/Special Test Scores Lower Extremity Functional Score: 55 Goals Goals Goal 1:: Decrease R knee pain x 50% to aid with ambulation Goal Time Frame: 4-6 Weeks Goal Progress: Progressing Goal 2:: Increase R knee ROM x 20 degrees to aid with squatting type activity Goal Time Frame: 4-6 Weeks Goal Progress: Goal Met Goal 3:: Increase R knee strength x 10#F to aid with stair negotiation Goal Time Frame: 4-6 Weeks Goal Progress: Progressing Goal 4:: I with HEP Goal Time Frame: 4-6 Weeks Goal Progress: Progressing Anticipated Interventions Anticipated Interventions Patient/Client Instruction: Educate patient on: Condition and Plan of Care For the Purpose of:: To improve self management Therapeutic Exercise to Include: Strength training, Endurance training, Balance training, Flexibilty training, In an aquatic setting, Active ROM and Dynamic Lumbar Stabilization For the Purpose of:: To decrease pain, To increase ROM and To improve muscle performance and motor function Re-Evaluation Ending Re-evaluation ending: Please do not hesitate to contact me at [phone] by phone or if you have questions or concerns regarding this new plan of care! Sincerely, Jovany Jones, PT, ATC
--- NOTE | 2024-08-14 16:00 | HP.PTREVAL ---
Re-Evaluation Intro: Dr. Elver Clark MD, It has been my pleasure to treat STEVIE PISANO over the last 18 visits for R knee OA. Please see the progress note below for an update on the physical therapy plan of care! Subjective Subjective: Pt reports she only has pain if she stands for a long period of time Objective Objective/Function: R knee pain is 0/10, but still elevates to 8/10 R knee MMT: flex= 23, ext= 35#F R knee ROM: 0-90 degrees Pt is showing excellent progress at this time Plan Plan Plan: Transition to land ex's at this time Balance/Gait/Functional tests Balance/Special Test Scores Lower Extremity Functional Score: 52 Goals Goals Goal 1:: Decrease R knee pain x 50% to aid with ambulation Goal Time Frame: 4-6 Weeks Goal Progress: Progressing Goal 2:: Increase R knee ROM x 20 degrees to aid with squatting type activity Goal Time Frame: 4-6 Weeks Goal Progress: Goal Met Goal 3:: Increase R knee strength x 10#F to aid with stair negotiation Goal Time Frame: 4-6 Weeks Goal Progress: Goal Met Goal 4:: I with HEP Goal Time Frame: 4-6 Weeks Goal Progress: Progressing Anticipated Interventions Anticipated Interventions Patient/Client Instruction: Educate patient on: Condition and Plan of Care For the Purpose of:: To improve self management Therapeutic Exercise to Include: Strength training, Endurance training, Balance training, Flexibilty training, In an aquatic setting, Active ROM and Dynamic Lumbar Stabilization For the Purpose of:: To decrease pain, To increase ROM and To improve muscle performance and motor function Re-Evaluation Ending Re-evaluation ending: Please do not hesitate to contact me at [phone] by phone or if you have questions or concerns regarding this new plan of care! Sincerely, Jovany Jones, PT, ATC
--- NOTE | 2024-08-14 16:00 | HP.PT.NRP ---
Patient Information Patient Information: STEVIE PISANO was seen in my office for initial evaluation on 06/04/24. The following Plan of Care was established for this patient: POC Established Initial Frequency: 2x /Week Initial Duration: 4 Weeks Anticipated Interventions Patient/Client Instruction: Educate patient on: Condition and Plan of Care For the Purpose of:: To improve self management Therapeutic Exercise to Include: Strength training, Endurance training, Balance training, Flexibilty training, In an aquatic setting, Active ROM and Dynamic Lumbar Stabilization For the Purpose of:: To decrease pain, To increase ROM and To improve muscle performance and motor function Last Seen Last Seen: This patient was last seen in our office . Pertinent comments regarding their Physical therapy will appear below: At this point I will be discontinuing this patient from physical therapy. I would be happy to see this patient again in the future if found appropriate by the physician. Thank you! Jovany Jones, PT, ATC Balance/Gait/Functional tests Balance/Special Test Scores Lower Extremity Functional Score: 52
--- NOTE | 2024-09-08 13:30 | HP.PTREVAL ---
Re-Evaluation Intro: Dr. Elver Clark MD, It has been my pleasure to treat STEVIE PISANO over the last 23 visits for R knee OA. Please see the progress note below for an update on the physical therapy plan of care! Subjective Subjective: I am feeling pretty good. Pt reports she feels good until she is climbing or stepping over something. Objective Objective/Function: R knee pain 0/10, increases to 5/10 at worst R knee MMT: flex= 23, ext= 44 #F R knee ROM: 0-8-90 degrees Pt has achieved all goals but the I with a gym routine Plan Plan Plan: Follow up x 2 visits to educate patient on gym routine, then discharge to gym routine. Balance/Gait/Functional tests Balance/Special Test Scores Lower Extremity Functional Score: 48 Goals Goals Goal 1:: Decrease R knee pain x 50% to aid with ambulation Goal Time Frame: 4-6 Weeks Goal Progress: Goal Met Goal 2:: Increase R knee ROM x 20 degrees to aid with squatting type activity Goal Time Frame: 4-6 Weeks Goal Progress: Goal Met Goal 3:: Increase R knee strength x 10#F to aid with stair negotiation Goal Time Frame: 4-6 Weeks Goal Progress: Goal Met Goal 4:: I with HEP Goal Time Frame: 4-6 Weeks Goal Progress: Progressing Anticipated Interventions Anticipated Interventions Patient/Client Instruction: Educate patient on: Condition and Plan of Care For the Purpose of:: To improve self management Therapeutic Exercise to Include: Strength training, Endurance training, Balance training, Flexibilty training, In an aquatic setting, Active ROM and Dynamic Lumbar Stabilization For the Purpose of:: To decrease pain, To increase ROM and To improve muscle performance and motor function Re-Evaluation Ending Re-evaluation ending: Please do not hesitate to contact me at [phone] by phone or if you have questions or concerns regarding this new plan of care! Sincerely, Jovany Jones, PT, ATC
--- NOTE | 2024-10-13 11:52 | HP.PTDCSUM ---
Discharge Summary D/C summary: It has been my pleasure to treat STEVIE PISANO referred by Dr. Elver Clark MD, with the diagnosis of R knee OA for a total of 25 visit(s). Discharge Date: Please see the following information for a summary of their discharge status. Subjective Subjective: My knees are so much better now Pain R knee: Pain Intensity (Out of 10): 0 L knee: Pain Intensity (Out of 10): 0 Overall Improvement % Improvement: 75 Objective Objective/Function: R knee pain 0/10, increases to 5/10 at worst R knee MMT: flex= 23, ext= 44 #F R knee ROM: 0-8-90 degrees Pt has achieved all goals Goals Goal 1:: Decrease R knee pain x 50% to aid with ambulation Goal Progress: Goal Met Goal 2:: Increase R knee ROM x 20 degrees to aid with squatting type activity Goal Progress: Goal Met Goal 3:: Increase R knee strength x 10#F to aid with stair negotiation Goal Progress: Goal Met Goal 4:: I with HEP Goal Progress: Progressing Plan Plan: Discharge to HEP D/C Information d/c sentence: If there are questions or concerns regarding this patient's physical therapy, please feel free to call me at [phone]. Thank you for the referral of this patient. Sincerely, Jovany Joens, PT, ATC Balance/Gait/Functional tests Balance/Special Test Scores Lower Extremity Functional Score: 50 Improvement % Improvement: 75
== END 2024-10-13 19:00 | disposition home or self-care (01) ==
LOC: PT 10:30
PROVIDERS: PCP Family Medicine; Referring Provider Specialist; Visit Provider Specialist
DX: M25.561 Pain in right knee (principal); M25.562 Pain in left knee; M17.0 Bilateral primary osteoarthritis of knee
CPT/HCPCS: 97110; 97113; 97161; 97530